=== PATIENT | male | born 1940 | race Caucasian/White ===

== ENCOUNTER 2021-10-31 15:06 | Emergency (ER) | payer OTHER, MEDICARE ==
[2021-10-31] MEDS ORDERED: ULTRAM50 MG PO ×2 (18:16→18:22)
== END 2021-10-31 19:11 | disposition home or self-care (01) ==
LOC: FER 15:06
DX: S82.031A Displaced transverse fracture of right patella, initial encounter for closed fracture (principal); S00.01XA Abrasion of scalp, initial encounter; S80.02XA Contusion of left knee, initial encounter; M54.50 Low back pain, unspecified; I10 Essential (primary) hypertension; E66.9 Obesity, unspecified; Z88.8 Allergy status to other drugs, medicaments and biological substances; V43.52XA Car driver injured in collision with other type car in traffic accident, initial encounter
CPT/HCPCS: 72131; 73560